=== PATIENT | female | born 1980 | race Caucasian/White ===

== ENCOUNTER 2023-02-13 17:53 | Emergency (ER) | payer BC ==
[2023-02-13] MEDS ORDERED: Ondansetron PF 4 MG/2 ML Vial ONE (18:25)
[2023-02-13 18:38] LABS: #Basophils 0.1 thou/uL (0.0-0.2); #Eosinphils 0.1 thou/uL (0.0-0.7); #Lymphocytes 2.7 thou/uL (1.20-3.40); #Monocytes 0.7 thou/uL (0.11-0.59); #Neutrophils 7.9 thou/uL (1.40-6.50); %Basophils 0.9 % (0.0-1.0); %Eosinophils 1.1 % (0.0-10.0); %Lymphocytes 23.2 % (21.0-51.0); %Monocytes 6.1 % (0.0-10.0); %Neutrophils 68.7 % (42.0-75.0); Hemoglobin 14.6 g/dL (12.0-16.0); Mean Corpuscular HGB CONC 32.2 g/dL (32.0-36.0); Mean Corpuscular Hemoglobin 28.5 pg (27.0-31.0); Mean Corpuscular Volume 88.7 fl (78.0-98.0); Mean Platelet Volume 8.1 fL (7.4-10.4); Platelet Count 298 10x3/uL (130-400); RBC Distribution Width 12.4 % (11.5-14.5); White Blood Cell (WBC) Count 11.5 10x3/uL (4.8-10.8)
[2023-02-13 18:54] LABS: ALT (SGPT) 39 U/L (8-55); AST (SGOT) 26 U/L (5-34); Albumin 4.6 g/dL (3.5-5.0); Alkaline Phosphatase 87 U/L (40-110); Anion Gap 19 mmol/L (10-20); BUN (Urea Nitrogen) 12 mg/dL (7.0-18.7); Bilirubin, Total 0.7 mg/dL (0.2-1.2); CK (CPK) 75 U/L (29-168); Calc. Creatinine Clearance 0 mL/min (70-130); Calcium 10.4 mg/dL (7.8-10.44); Carbon Dioxide 19 mmol/L (22-29); Chloride 106 mmol/L (98-107); Estimated GFR 71; Globulin 3.9 g/dL (2.4-3.5); Glucose 112 mg/dL (70-105); Lipase 30 U/L (8-78); Potassium 3.6 mmol/L (3.5-5.1); Protein, Total 8.5 g/dL (6.0-8.3); Sodium 140 mmol/L (136-145)
== END 2023-02-13 19:36 | disposition home or self-care (01) ==
LOC: BURERS 17:53
DX: R11.10 Vomiting, unspecified (principal); E86.0 Dehydration; D72.829 Elevated white blood cell count, unspecified; Z79.01 Long term (current) use of anticoagulants
CPT/HCPCS: 80053; 82550; 83690; 84484; 85025; 93005; 96361; 96374; J2405

== ENCOUNTER 2024-04-22 16:58 | Emergency (ER) | payer BC ==
[2024-04-22] MEDS ORDERED: Ondansetron ODT 4 MG TAB ONE (17:10)
[2024-04-22] MEDS ORDERED: Ondansetron PF 4 MG/2 ML Vial ONE (17:26)
[2024-04-22 17:29] LABS: #Basophils 0.1 thou/uL (0.0-0.2); #Eosinphils 0.1 thou/uL (0.0-0.7); #Monocytes 0.7 thou/uL (0.11-0.59); #Neutrophils 9.5 thou/uL (1.40-6.50); %Basophils 0.7 % (0.0-1.0); %Eosinophils 0.9 % (0.0-10.0); %Lymphocytes 22.6 % (21.0-51.0); %Monocytes 5.5 % (0.0-10.0); %Neutrophils 70.4 % (42.0-75.0); Hemoglobin 14.5 g/dL (12.0-16.0); Mean Corpuscular HGB CONC 32.9 g/dL (32.0-36.0); Mean Corpuscular Hemoglobin 28.3 pg (27.0-31.0); Mean Corpuscular Volume 85.9 fl (78.0-98.0); Mean Platelet Volume 7.1 fL (7.4-10.4); Platelet Count 305 10x3/uL (130-400); RBC Distribution Width 11.5 % (11.5-14.5); Red Blood Cell (RBC) Count 5.13 mill/uL (4.20-5.40); White Blood Cell (WBC) Count 13.5 10x3/uL (4.8-10.8)
[2024-04-22 17:47] LABS: ALT (SGPT) 28 U/L (8-55); AST (SGOT) 15 U/L (5-34); Albumin 4.7 g/dL (3.5-5.0); Alkaline Phosphatase 72 U/L (40-110); Anion Gap 19 mmol/L (10-20); BUN (Urea Nitrogen) 13 mg/dL (7.0-18.7); Bilirubin, Total 0.8 mg/dL (0.2-1.2); Calc. Creatinine Clearance 0 mL/min (70-130); Calcium 11.1 mg/dL (7.8-10.44); Carbon Dioxide 19 mmol/L (22-29); Chloride 104 mmol/L (98-107); Estimated GFR 77; Globulin 3.3 g/dL (2.4-3.5); Glucose 128 mg/dL (70-105); Lipase 27 U/L (8-78); Potassium 3.9 mmol/L (3.5-5.1); Sodium 138 mmol/L (136-145)
[2024-04-22 17:49] LABS: BHCG - Serum Negative (NEGATIVE); Pregs Control Background? CLEAR/WHITE (CLR/WHITE); Pregs Control Bar Appear? YES (CONTROL BAR)
[2024-04-22] MEDS ORDERED: Acetaminophen 500 MG TAB ONE (17:54)
[2024-04-22] MEDS ORDERED: Pantoprazole 40 MG VIAL ONE (18:09)
[2024-04-22 18:40] LABS: Bilirubin Small (Negative); Blood, Urine Negative (Negative); Clarity Clear (Clear); Glucose, Urine (Dipstick) Negative (Negative); Ketone, Urine 80 mg/dL (Negative); Leukocyte Negative (Negative); Nitrite Negative (Negative); Protein, Urine (Dipstick) Negative (Neg-Trace); Urobilinogen 0.2 mg/dL (Less than 2)
[2024-04-22 18:50] LABS: Specific Gravity, Urine 1.033 (1.002-1.036)
[2024-04-22 18:51] LABS: Bacteria/HPF None Seen HPF (None Seen); CAUTI Indications for Culture Dysuria,urgency,freq; RBC/HPF None Seen HPF (0-3); Squamous Epithelial 0-3 HPF (0-3); WBC/HPF None Seen HPF (0-3)
[2024-04-22 18:52] LABS: Urine Culture Reflex No No
== END 2024-04-22 19:00 | disposition home or self-care (01) ==
LOC: BURERS 16:58
DX: T67.5XXA Heat exhaustion, unspecified, initial encounter (principal); E86.0 Dehydration; R11.2 Nausea with vomiting, unspecified; I48.91 Unspecified atrial fibrillation; Z86.711 Personal history of pulmonary embolism; Z86.718 Personal history of other venous thrombosis and embolism; Z79.01 Long term (current) use of anticoagulants; Z79.899 Other long term (current) drug therapy
CPT/HCPCS: 36415; 80053; 81001; 83690; 84703; 85025; 96361; 96374; 96375; C9113; J2405; Q0162